=== PATIENT | female | born 1975 | race Caucasian/White ===

== ENCOUNTER 2022-05-20 13:40 | Outpatient (CLI) | payer OTHER, SELFPAY ==
--- NOTE | 2022-05-20 14:00 | CRLHL7_ITS ---
For Patients: As a result of the Century Cures Act, medical imaging exams and procedure reports are released immediately into your electronic medical record. You may view this report before your referring provider. If you have questions, please contact your health care provider. BILATERAL DIGITAL SCREENING MAMMOGRAM WITH TOMOSYNTHESIS AND COMPUTER-AIDED DETECTION CLINICAL HISTORY: Routine screening exam. COMPARISON: 03/19/2021. TECHNIQUE: Digital mammogram in CC and MLO projections including computer-aided detection (CAD). Tomosynthesis utilized. BREAST COMPOSITION: The breasts are heterogeneously dense, which may obscure small masses. FINDINGS: RIGHT Breast: Focal asymmetric density within the lower outer quadrant RIGHT breast 5 cm from the nipple. LEFT Breast: No suspicious findings. IMPRESSION: RIGHT breast asymmetry/mass. RECOMMENDATIONS: Additional mammographic views of the RIGHT breast including 3D spot compression CC/MLO. RIGHT breast ultrasound may also be required. BI-RADS Category 0: Incomplete: Need Additional Imaging Evaluation and/or Prior Mammograms for Comparison [facility] will contact the patient for follow-up. A lay language report of this examination will be provided to the patient. Dictated by Tommy Drake MD @ 05/23/2022 8:59:19 AM jj/Dictated by: Tommy Drake MD @ 05/23/2022 8:59:00 AM (Electronically Signed)
== END 2022-05-20 13:41 | disposition home or self-care (01) ==
LOC: MAMMO 13:43
PROVIDERS: PCP Physician Assistant Medical; Visit Provider Physician Assistant
DX: Z12.31 Encounter for screening mammogram for malignant neoplasm of breast (principal); R92.2 Inconclusive mammogram
CPT/HCPCS: 77063; 77067

== ENCOUNTER 2022-05-26 10:35 | Outpatient (CLI) | payer OTHER, SELFPAY ==
--- NOTE | 2022-05-26 10:45 | CRLHL7_ITS ---
For Patients: As a result of the Cures Act, medical imaging exams and procedure reports are released immediately into your electronic medical record. You may view this report before your referring provider. If you have questions, please contact your health care provider. DIGITAL DIAGNOSTIC RIGHT MAMMOGRAM USING TOMOSYNTHESIS AND COMPUTER-AIDED DETECTION RIGHT BREAST ULTRASOUND CLINICAL HISTORY: RIGHT breast mass/asymmetry. COMPARISON: 05/20/2022. TECHNIQUE: Digital RIGHT mammogram in two projections. Tomosynthesis and CAD utilized. Real-time ultrasound imaging of RIGHT breast with imaging documentation. BREAST COMPOSITION: The breast is heterogeneously dense, which may obscure small masses. FINDINGS: 3D spot compression CC/MLO RIGHT breast mammogram images submitted. Persistent nodular density within the lower outer quadrant noted without architectural distortion. No suspicious calcifications. Targeted RIGHT breast ultrasound performed at 8 o`clock 4 cm from the nipple. In this location there is a simple anechoic cyst with circumscribed margins measuring 9 x 6 x 10 millimeters. IMPRESSION: Benign simple cyst RIGHT breast 8 o`clock 4 cm from the nipple measuring 1 cm. No evidence of malignancy. RECOMMENDATIONS: Annual BILATERAL screening mammography. Results and recommendations discussed with the patient. BI-RADS Category 2: Benign Dictated by Tommy Drake MD @ 05/26/2022 11:53:28 AM jj/Dictated by: Tommy Drake MD @ 05/26/2022 11:53:00 AM (Electronically Signed)
--- NOTE | 2022-05-26 11:15 | CRLHL7_ITS ---
For Patients: As a result of the Cures Act, medical imaging exams and procedure reports are released immediately into your electronic medical record. You may view this report before your referring provider. If you have questions, please contact your health care provider. PLEASE SEE DIGITAL DIAGNOSTIC RIGHT MAMMOGRAM PERFORMED SAME DAY CRL:juana arias/Dictated by: Tommy Drake MD @ 05/26/2022 11:53:00 AM (Electronically Signed)
== END 2022-05-26 10:36 | disposition home or self-care (01) ==
LOC: MAMMO 10:35
PROVIDERS: PCP Physician Assistant Medical; Visit Provider Physician Assistant
DX: N63.10 Unspecified lump in the right breast, unspecified quadrant (principal); N60.01 Solitary cyst of right breast; R92.8 Other abnormal and inconclusive findings on diagnostic imaging of breast
CPT/HCPCS: 76642; 77065; G0279

== ENCOUNTER 2023-06-16 14:21 | Outpatient (CLI) | payer OTHER, SELFPAY ==
--- NOTE | 2023-06-16 14:40 | MM_ITS ---
Patient: QUAN COBOS Facility:?[facility] Patient ID:?[id number] Site Patient ID:?[id number] Site :?[id number] Study:?XRay-Breast Bilateral 3D W/CAD-06/16/2023 3:13:34 PM Ordering Physician:Eleuterio Final Report: BILATERAL SCREENING MAMMOGRAM WITH COMPUTER-AIDED DETECTION AND TOMOSYNTHESIS TECHNIQUE: CC and MLO views were obtained. These mammographic images have been obtained using full-field digital technique. These mammographic images were interpreted with the benefit of computer-aided detection. Breast Tomosynthesis was used in this interpretation. COMPARISON FILM: 05/20/22, 03/19/21. FINDINGS: The breasts are heterogeneously dense, which may obscure small masses. IMPRESSION: There is no radiographic evidence for malignancy. ASSESSMENT: BI-RADS Category 1: Negative RECOMMENDATION: Routine screening mammogram in 1 year. A lay language report of this examination will be provided to the patient. Tommy Drake M.D. Diagnostic Radiologist [email or web address] DSM/sp R& Transcribed: 3:52 p.m. SP/Dictated by: Tommy Drake MD @ 06/19/2023 10:40:00 AM Signed by:?Tommy Drake MD @06/19/2023 4:00:54 PM (Electronic Signature)
== END 2023-06-16 14:22 | disposition home or self-care (01) ==
LOC: MAMMO 14:22
PROVIDERS: PCP Physician Assistant Medical; Visit Provider Physician Assistant Medical
DX: Z12.31 Encounter for screening mammogram for malignant neoplasm of breast (principal); R92.2 Inconclusive mammogram
CPT/HCPCS: 77063; 77067

== ENCOUNTER 2024-07-12 09:56 | Outpatient (CLI) | payer OTHER, SELFPAY ==
--- NOTE | 2024-07-12 10:15 | CRLHL7_ITS ---
For Patients: As a result of the Century Cures Act, medical imaging exams and procedure reports are released immediately into your electronic medical record. You may view this report before your referring provider. If you have questions, please contact your health care provider. INDICATION: SCREENING MAMMOGRAM, ASYMPTOMATIC 48 Y/O FEMALE COMPARISON: 06/16/2023, 05/20/2022, 03/19/2021 TECHNIQUE: Digital mammogram in CC and MLO projections including computer-aided detection (CAD) and tomosynthesis. BREAST COMPOSITION: The breasts are extremely dense, which lowers the sensitivity of mammography. FINDINGS: No suspicious findings. ASSESSMENT: BI-RADS 1 Negative RECOMMENDATION: Annual screening mammogram. A lay language report of this examination will be provided to the patient. Dictated by: Tommy Drake MD @ 07/16/2024 12:49:48 (Electronically Signed)
== END 2024-07-12 09:57 | disposition home or self-care (01) ==
PROVIDERS: Visit Provider Physician Assistant Medical
DX: Z12.31 Encounter for screening mammogram for malignant neoplasm of breast (principal); R92.343 Mammographic extreme density, bilateral breasts
CPT/HCPCS: 77063; 77067